=== PATIENT | female | born 1950 | race Caucasian/White ===

== ENCOUNTER 2024-05-08 22:01 | Emergency (ER) | payer MEDICARE, BC, SELFPAY ==
--- OUTSIDE RECORDS SUMMARY | 2024-05-08 22:03 | XMS_ITS | Clinical Summary ---
Author Organization [facility] Address [address] [place] [id number] Care Team Providers Care Geodetic Computator Name Role Phone Lizette Shearer MD Primary Care Provide r Allergies Active Allergy Reactions Criticality Noted Date Comments Tree Nut Throat Swelling/Closing High 11/03/2010 Almonds and hazelnuts, throat swelling Medications vit C,K-Mm-cxnrk-lutei n-zeaxan (PreserVision AREDS-2) capsule Take 1 Capsule by mouth two times daily. 0 01/14/20 22 Active levothyroxine (SYNTHROID) 50 mcg tabletIndications: Hypothyroidism, unspecified type Take 1 Tablet (50 mcg) by mouth before breakfast. Every other day alternating with 75mcg 45 Tablet 3 12/26/19 24 Active levothyroxine (SYNTHROID) 75 mcg tabletIndications: Hypothyroidism, unspecified type Take 1 Tablet (75 mcg) by mouth before breakfast. Every other day alternating with 50mcg. 45 Tablet 3 12/26/19 24 Active EPINEPHrine (EPIPEN) 0.3 mg/0.3 mL auto-injectorIndic ations:[place] allergy Inject 0.3 mg (1 Pen) intramuscular one time if needed for Allergic Reaction. 1 Each 2 12/26/19 24 Active pravastatin (PRAVACHOL) 40 mg tabletIndications: Hyperlipidemia, unspecified hyperlipidemia type Take 1 Tablet (40 mg) by mouth at bedtime. 90 Tablet 3 12/28/19 24 Active cholecalciferol (Vitamin D-3) 2,000 unit capsuleIndications :Osteoporosis, unspecified osteoporosis type, unspecified pathological fracture presence Take 1 Capsule (2,000 units) by mouth once daily. 02/01/20 24 Active ibandronate (BONIVA) 150 mg tabletIndications: Osteoporosis, unspecified osteoporosis type, unspecified pathological fracture presence Take 1 Tablet (150 mg) by mouth once a month. Take on empty stomach with full glass of water, do not lie down for 1 hr. 3 Tablet 3 02/01/20 24 Active ibuprofen (ADVIL; MOTRIN) 200 mg tablet Take 200 mg by mouth 4 times daily if needed. Active Active Problems Problem Noted Date Diagnosed Date Osteoporosis 12/05/2019 Family history of colon cancer 12/17/2015 halfway (current) use of anticoagulants 2012 Other adverse food reactions, not elsewhere clas sified 11/08/2010 Allergic rhinitis, cause unspecified 11/08/2010 [place] allergy 11/03/2010 Overview (11/03/2010): Throat swelling Colon polyp 10/28/2009 Overview (12/02/2020): Unremarkable colonoscopy summer 2006, repeat 5 years Colonoscopy 08/2011 diverticulosis repeat in 5 years Colonoscopy 11/2015 few diverticuli, repeat in 5 years Colonoscopy 11/2020 diverticulosis, repeat in 5 years Hyperlipidemia 10/30/2007 Unspecified hypothyroidism Disorder of bone and cartilage, unspecified Overview (11/03/2010): Osteopenia, dexa 09/2005. Minimal change in 2009 Resolved Problems Problem Noted Date Diagnosed Date Resolved Date Varicose veins of left lower extremity with both ulcer of ankle and inflammation (CODE) 12/22/2022 02/25/2024 Encounters Date Type Department Care Team Description 04/01/2024 11:40 AM BEAN PICKER MACHINE OPERATOR [place] [facility] [address] [place] [address] Mckenna Perdomo MD Derm Problem 04/01/2024 Travel 03/08/2024 9:45 AM BEAN PICKER MACHINE OPERATOR Orders Only [facility] [address] [place] [address] Lab, [place] [facility] 03/08/2024 Travel 02/23/2024 3:40 PM BEAN PICKER MACHINE OPERATOR - 02/23/2024 11:59 PM BEAN PICKER MACHINE OPERATOR Hospital Encounter [facility] [address] [facility] [place] [address] Laurita Rolon DO Localized swelling of left lower leg 02/23/2024 2:40 PM BEAN PICKER MACHINE OPERATOR Office Visit [facility] [address] [facility] [address] Laurita Rolon DO Lump ([place] lump in lower left leg, inside. this am swollen toes and numbness) 02/23/2024 Travel 02/23/2024 Nurse Triage [facility] [address] [place] [address] Lizette Shearer MD Leg Swelling from Last 3 Months Immunizations Name Administration Dates Next Due AMB Influenza, IIV4 PF (=>6 mos Flulaval,Fluzone Fluarix)(Flu Clinic Only) 01/20/2015,01/30/2014 Amb Influenza, Inact (High-d ose) (Flu Clinic Only) 12/28/2015 COVID-19 vaccine (Moderna 10 0mcg/0.5mL) PF, MDV 06/12/2020,05/15/2020 Hepatitis A (Adult) 11/02/2006,04/25/2006 Hepatitis B (Adult) 06/14/2002,01/18/2002,2001 Influenza A (H1N1), Inactivated 03/23/2009 Influenza A (H1N1), Inactiva dave (Age >=3 Years) 03/23/2009 Influenza RIV4 (Age 18+ Years) PRESERV FREE 08/2019,01/10/2019 Influenza, High-dose Inactivated 12/29/2023,12/20 Influenza, High-dose Quadriv alent Inactivated 12/28/2022,01/04/2022,12/29/2020 Influenza, IIV3 (Age >=3 years) 12/14/2012,12/23,12/24/2009 Influenza, Inactivated IIV3 (Age 65+ Years) Preserv Free 01/09/2017 Pneumococcal Poly,23-Valent (Pneumovax) 08/30/19 14 Pneumococcal conj 13-Valent (Prevnar 13) 016 RSV, Recombinant ADJ Reconst ituted (Arexvy 120MCG/0.5mL) 01/11/2024 Td (Age >=7 Years) 09/24/2002 Tdap 07/06/2022,11/03/2010 Zoster (Shingrix-RZV, recombinant) 03/17/2018, Zoster (Zostavax-ZVL, live) 10/28/2009 Family History Medical History Relation Name Comments Heart Disease Brother stent Hyperlipidemia Brother Heart Disease Father age 76, l ikely arrhythmia Hypertension Father Cancer Maternal Grandmother Hodgkin 's disease Cancer-colon Mother Heart Disease Mother age 87 Hyperlipidemia Mother Heart Disease Other Cancer Paternal Grandmother Leukemi a Hyperlipidemia Sister lung cancer Lung cancer Sister Cancer-breast No Family History Cancer-ovarian No Family History Relation Name Status Comments Brother Father (Age 76) ND Maternal Grandmother Mother (Age 87) chf Other Paternal Grandmother Sister Social History Tobacco Use Types Packs/Day Years Used Date Smoking Tobacco: Never Smokeless Tobacco: Never Tobacco Cessation:Counseling Given: No Alcohol Use Standard Drinks/Week Comments Yes 7 (1 standard drink = 0.6 oz pur e alcohol) PHQ-2 Answer Date Recorded PHQ-2 TOTAL SCORE 0 12/26/2023 Social Connections Answer Date Recorded Do you often feel lonely or isolated from those around you? 0 12/26/2023 Financial Resource Strain Answer Date R ecorded Difficulty of Paying Living Expenses 3 12/26/2023 Difficulty of Paying Living Expenses Not on file 12/26/2023 Food Insecurity Answer Date Recorded Do you worry your food will run out before you are able to buy more? 1 12/26/2023 Transportation Needs Answer Date Record ed Does lack of transportation keep you from medica l appointments? 1 12/26/2023 Does lack of transportation keep you from work, meetings or getting things that you need? 1 12/26/2023 Housing Stability Answer Date Recorded What is your housing situation today? 1 12/26/2023 Utilities Answer Date Recorded Do you have trouble paying f or utilities (for example, heat, electricity, water, phone)? 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 Not on file Not on file Obstetrics History Para Term AB IAB SAB Ectopic Multiple Livin g Live Births 2 2 2 Date Outcome GA Total Labor Labor/2nd/3rd Weight Sex Type Anes PTL Kathia A1 A5 Name Clin Para Para Last Filed Vital Signs Vital Sign Reading Time Taken Comments Blood Pressure 142/72 02/23/2024 2:45 PM BEAN PICKER MACHINE OPERATOR Pulse 78 02/23/2024 2:42 PM BEAN PICKER MACHINE OPERATOR Temperature 36.3 C (97.4 F) 07/31/2023 10:32 AM CDT Respiratory Rate 18 02/23/2024 2:42 PM BEAN PICKER MACHINE OPERATOR Oxygen Saturation 98% 02/23/2024 2:42 PM BEAN PICKER MACHINE OPERATOR Inhaled Oxygen Concentration - - Weight 53 kg (116 lb 12.8 oz) 02/23/2024 2:42 PM BEAN PICKER MACHINE OPERATOR Height 165.7 cm (5' 5.25) 12/26/2023 8:43 AM CD T Body Mass Index 19.29 12/26/2023 8:43 AM CDT Plan of Treatment Health Maintenance Due Date Last Done Comments BMI (ht and wt on same day) for age 18+ 12/25/2024 12/26/2023, 04/27/2022, 01/13/2022, Additional history exists Medicare Wellness for age 65+ 12/26/2024, 12/22/2022, 12/17/2021, Additional history exists Depression screening for age 12+ 12/27/2024 12/28/2023, 12/26/2023, 12/22/2022, Additional history exists Colonoscopy through age 75 12/02/202512/02, 12/02/2020, 12/17/2015, Additional history exists Lipids for age 45-75 03/08/2029 03/08/2024, 12/26/2023, 12/22/2022, Additional history exists Tetanus booster 07/06/2032 07/06/2022, 10/18, 09/24/2002 Pneumococcal series for age 50+ Completed 6, 08/29/2013 Zoster (shingles) series for age 50+ Completed 03/17/2018, 12/19/2017, 10/28/2009 Hepatitis C screening for ag e 18-79 Completed 11/30/2018 Tdap Completed 07/06/2022, 11/03/2010 Influenza for age 65+ Completed 12/29/2023 , 12/28/2022, 01/04/2022, Additional history exists RSV vaccine for adults or Completed 01/11/2024 DEXA/DXA scan for age 65+ Completed 2023, 09/26/2014, 10/29/2009 COVID-19 vaccine series Completed 02/12/20, 07/18/2023, 01/25/2023, Additional history exists Procedures Procedure Name Priority Date/Time Associated Diagnosis Comments VITAMIN D 25 (DEFICIENCY) Routine 03/08/2024 9:54 AM BEAN PICKER MACHINE OPERATOR Osteoporosis, unspecified osteoporosis type, unspecified pathological fracture presence LIPID PANEL W REFLEX MEASURED LDL Routine 03/08/2024 9:54 AM BEAN PICKER MACHINE OPERATOR Other hyperlipidemia BASIC METABOLIC PANEL Routine 03/08/2024 9:54 AM BEAN PICKER MACHINE OPERATOR Osteoporosis, unspecified osteoporosis type, unspecified pathological fracture presence ALT (SGPT) Routine 03/08/2024 9:54 AM BEAN PICKER MACHINE OPERATOR Other hyperlipidemia US VENOUS LOWER EXTREMITY LEFT STAT 02/23/2024 4:28 PM BEAN PICKER MACHINE OPERATOR Localized swelling of left lower leg CBC WITH AUTO DIFFERENTIAL STAT 02/23/2024 3:34 PM BEAN PICKER MACHINE OPERATOR Localized swelling of left lower leg BASIC METABOLIC PANEL STAT 02/23/2024 3:34 PM BEAN PICKER MACHINE OPERATOR Localized swelling of left lower leg CBC WITH AUTO DIFFERENTIAL STAT 02/23/2024 3:34 PM BEAN PICKER MACHINE OPERATOR Localized swelling of left lower leg XR DXA BONE DENSITY 2 SITES AXIAL Routine 01/22/2024 9:05 AM BEAN PICKER MACHINE OPERATOR Menopause COLONOSCOPY 12/02/2020 10:06 AM CDT ANTI HCV Routine 11/30/2018 9:51 AM CDT Encounter for hepatitis C screening test for low risk patient from Last 3 Months or Most Recently Relevant to Health Maintenance Results * (ABNORMAL) LIPID PANEL W REFLEX MEASURED LDL (03/08/2024 9:54 AM BEAN PICKER MACHINE OPERATOR) CHOLESTEROL, TOTAL 227(H) <200 mg/dL [facility] HDL CHOLESTEROL 80 > OR = 50 mg/dL [facility] TRIGLYCERIDES 90 <150 mg/dL [facility] LDL-CHOLESTEROL 128(H) mg/dL (calc) [facility] Comment: Reference range: <100 Desirable range <100 mg/dL for primary prevention; <70 mg/dL for patients with CHD or diabetic patients with > or = 2 CHD risk factors. LDL-C is now calculated using the Arian calculation, which is a validated novel method providing better accuracy than the Friedewald equation in the estimation of LDL-C. Jamal SS et al. EDIN. 2013;310(19): 1296-8751 (http://education.Perminova/faq/YUT836) CHOL/HDLC RATIO 2.8 <5.0 (calc) [facility] NON HDL CHOLESTEROL 147(H) <130 mg/dL (calc) [facility] Comment: For patients with diabetes plus 1 major ASCVD risk factor, treating to a non-HDL-C goal of <100 mg/dL (LDL-C of <70 mg/dL) is considered a therapeutic option. Blood BLOOD SPECIMEN / Unknown 03/08/2024 9:54 AM BEAN PICKER MACHINE OPERATOR 03/08/2024 9:54 AM BEAN PICKER MACHINE OPERATOR us Lizette Shearer MD CHEMISTRY Final Result [employer] [facility] [address] [place] [address], [facility] [address] [place] [address] * VITAMIN D 25 (DEFICIENCY) (03/08/2024 9:54 AM BEAN PICKER MACHINE OPERATOR) VITAMIN D,25-OH,TOTAL,IA 61 30 - 100 ng/mL [facility] Comment: Vitamin D Status 25-OH Vitamin D: Deficiency: <20 ng/mL Insufficiency: 20 - 29 ng/mL Optimal: > or = 30 ng/mL For 25-OH Vitamin D testing on patients on D2-supplementation and patients for whom quantitation of D2 and D3 fractions is required, the [facility](TM) 25-OH VIT D, (D2,D3), LC/MS/MS is recommended: order code [id number] (patients >2yrs). See Note 1 Note 1 For additional information, please refer to http://education.Perminova/faq/FKA926 (This link is being provided for informational/ educational purposes only.) Blood BLOOD SPECIMEN / Unknown 03/08/2024 9:54 AM BEAN PICKER MACHINE OPERATOR 03/08/2024 9:54 AM BEAN PICKER MACHINE OPERATOR Lizette Shearer MD SEND OUTS Final Result [employer] [facility] [address] [place] [address], [place] [phone] [facility] [address] [place] [address] * ALT (SGPT) (03/08/2024 9:54 AM BEAN PICKER MACHINE OPERATOR) ALT 11 6 - 29 U/L [facility] Blood BLOOD SPECIMEN / Unknown 03/08/2024 9:54 AM BEAN PICKER MACHINE OPERATOR 03/08/2024 9:54 AM BEAN PICKER MACHINE OPERATOR Lizette Shearer MD CHEMISTRY Final Result [employer] [facility] [address] [facility] [place] [address], [place] [phone] [facility] [address] [place] [address] * (ABNORMAL) BASIC METABOLIC PANEL (03/08/2024 9:54 AM BEAN PICKER MACHINE OPERATOR) Only the most recent of2 resultswithin the time period is included. GLUCOSE 93 65 - 99 mg/dL [facility] Comment: Fasting reference interval UREA NITROGEN (BUN) 17 7 - 25 mg/dL [facility] CREATININE 1.00 0.60 - 1.00 mg/dL [facility] EGFR 59(L) > OR = 60 mL/min/1. 73m2 [employer] [facility] BUN/CREATININE RATIO SEE NOTE: 6 - 22 (calc) [facility] Comment: Not Reported: BUN and Creatinine are within reference range. SODIUM 138 135 - 146 mmol/L [facility] POTASSIUM 4.6 3.5 - 5.3 mmol/L [facility] CHLORIDE 103 98 - 110 mmol/L [employer] [facility] CARBON DIOXIDE 27 20 - 32 mmol/L [facility] ELECTROLYTE BALANCE 8 7 - 17 mmol/L (calc) [facility] CALCIUM 9.2 8.6 - 10.4 mg/dL [facility] Blood BLOOD SPECIMEN / Unknown 03/08/2024 9:54 AM BEAN PICKER MACHINE OPERATOR 03/08/2024 9:54 AM BEAN PICKER MACHINE OPERATOR us Lizette Shearer MD CHEMISTRY Final Result [employer] [facility] [address] [place] [address], [facility] [address] [place] [address] * US VENOUS LOWER EXTREMITY LEFT (02/23/2024 4:28 PM BEAN PICKER MACHINE OPERATOR) Anatomical Region Laterality Modality LEGS, LEG L, Abdomen Ultrasound 02/23/2024 4:53 PM BEAN PICKER MACHINE OPERATOR Impressions 02/23/2024 4:53 PM BEAN PICKER MACHINE OPERATOR No evidence of left lower extremity deep venous thrombosis. Dictated by Sarmad Leo MD @ 02/23/2024 4:53:30 PM Dictated by: Sarmad Leo MD @ 02/23/2024 16:53:42 (Electronically Signed) Narrative 02/23/2024 4:53 PM BEAN PICKER MACHINE OPERATOR For Patients: As a result of the Cures Act, medical imaging exams and procedure reports are released immediately into your electronic medical record. You may view this report before your referring provider. If you have questions, please contact your health care provider. INDICATION: Localized swelling left lower leg. TECHNIQUE: Ultrasound venous duplex lower left extremity. Compression venous exam was performed using snyder-scale, color Doppler, and spectral Doppler analysis. COMPARISON: 12/07/2023. FINDINGS: Sonographic imaging demonstrates the left common femoral, deep femoral, superficial femoral, popliteal, posterior tibial, peroneal and contralateral right common femoral veins to be fully compressible with normal color Doppler blood flow. Left greater saphenous vein as imaged is patent in this patient with prior ablation. Soft tissues elsewhere as imaged are unremarkable. Procedure Note Sarmad Leo DO - 02/23/2024 For Patients: As a result of the Cures Act, medical imagingexams and procedure reports are released immediately into your electronicmedical record. You may view this report before your referring provider.If you have questions, please contact your health care provider. INDICATION: Localized swelling left lower leg. TECHNIQUE: Ultrasound venous duplex lower left extremity. Compression venous exam wasperformed using snyder-scale, color Doppler, and spectral Doppler analysis. COMPARISON: 12/07/2023. FINDINGS: Sonographic imaging demonstrates the left common femoral, deep femoral,superficial femoral, popliteal, posterior tibial, peroneal andcontralateral right common femoral veins to be fully compressible withnormal color Doppler blood flow. Left greater saphenous vein as imaged ispatent in this patient with prior ablation. Soft tissues elsewhere asimaged are unremarkable. IMPRESSION: No evidence of left lower extremity deep venous thrombosis. Dictated by Sarmad Leo MD @ 02/23/2024 4:53:30 PM Dictated by: Sarmad Leo MD @ 02/23/2024 16:53:42 (Electronically Signed) us Laurita Rolon DO US Final Result * (ABNORMAL) CBC WITH AUTO DIFFERENTIAL (02/23/2024 3:34 PM [facility]) WHITE BLOOD COUNT 8.4 4.5 - 11.0 thou/cu mm 02/23/2024 3:44 PM [facility] RED BLOOD COUNT 4.95 4.00 - 5.20 mil/cu mm 02/23/2024 3:44 PM [facility] HEMOGLOBIN 13.8 12.0 - 16.0 g/dL 02/23/2024 3:44 PM [facility] HEMATOCRIT 43.3 33.0 - 51.0 % 02/23/2024 3:44 PM [facility] MCV 88 80 - 100 fL 02/23/2024 3:44 PM [facility] MCH 27.9 26.0 - 34.0 pg 02/23/2024 3:44 PM [facility] MCHC 31.9(L) 32.0 - 36.0 g/dL 02/23/2024 3:44 PM [facility] RDW 14.0 11.5 - 15.5 % 02/23/2024 3:44 PM [facility] PLATELET COUNT 225 140 - 440 thou/cu mm 02/23/2024 3:44 PM [facility] MPV 9.7 6.5 - 11.0 fL 02/23/2024 3:44 PM [facility] % NEUT 67.6 % 02/23/2024 3:44 PM [facility] % LYMPH 20.7 % 02/23/2024 3:44 PM [facility] % MONO 9.0 % 02/23/2024 3:44 PM [facility] % EOS 1.9 % 02/23/2024 3:44 PM [facility] % BASO 0.8 % 02/23/2024 3:44 PM [facility] ABSOLUTE NEUTROPHILS 5.7 1.7 - 7.0 thou/cu mm 02/23/2024 3:44 PM BEAN PICKER MACHINE OPERATOR [facility] ABSOLUTE LYMPHOCYTES 1.7 0.9 - 2.9 thou/cu mm 02/23/2024 3:44 PM BEAN PICKER MACHINE OPERATOR [facility] ABSOLUTE MONOCYTES 0.8 <0.9 thou/cu mm 02/23/2024 3:44 PM BEAN PICKER MACHINE OPERATOR [facility] ABSOLUTE EOSINOPHILS 0.2 <0.5 thou/cu mm 02/23/2024 3:44 PM BEAN PICKER MACHINE OPERATOR [facility] ABSOLUTE BASOPHILS 0.1 <0.3 thou/cu mm 02/23/2024 3:44 PM BEAN PICKER MACHINE OPERATOR [facility] Blood BLOOD SPECIMEN / Unknown [facility] / Unknown 02/23/2024 3:34 PM BEAN PICKER MACHINE OPERATOR 02/23/2024 3:34 PM BEAN PICKER MACHINE OPERATOR us Laurita Rolon DO HEMATOLOGY Final Result [facility] [address] [place] [address] * (ABNORMAL) XR DXA BONE DENSITY 2 SITES AXIAL (01/22/2024 9:05 AM BEAN PICKER MACHINE OPERATOR) Anatomical Region Laterality Modality Spine, HIPS, HIPL, HIPR Other Impressions 01/23/2024 2:07 PM BEAN PICKER MACHINE OPERATOR Osteoporosis. RECOMMENDATIONS: The National Osteoporosis Foundation recommends pharmacologic treatment for patients with T-scores of -2.5 or less, patients with prior history of fragility fractures, or patients with 10-year probability of greater than 3% at hips or greater than 20% of suffering major osteoporotic fractures. Recommend continued optimization of calcium and vitamin D intake through dietary means and/or supplementation and regular exercise. Consider pharmacologic therapy for osteoporosis. Follow-up bone density reading in 2 years if therapy initiated to assess therapeutic efficacy. Albertina Omer PA-C [facility] 01/23/2024 Narrative 01/23/2024 2:07 PM BEAN PICKER MACHINE OPERATOR For Patients: Results are automatically released to your [employer] ([employer]) account once available, in compliance with federal regulations. This means that you may see your results before your provider has had a chance to review them. Please allow 2-3 business days for your provider to comment on the results. XR DXA Bone Mineral Density (BMD) EXAM LOCATION: [email or web address] [address] [facility] [address] PATIENT NAME: Jelena Galvez DATE OF : 1950 EXAM DATE: 01/22/2024 REQUESTING PROVIDER: Lizette Shearer MD GENDER AT : female HEIGHT: 5' 5.25 (12/26/2023) WEIGHT: 118 lb (12/26/2023) MENOPAUSAL STATUS: Postmenopausal RACE/ETHNICITY: White RISK FACTORS: Family History of Osteoporosis, History of Fragility Fracture (at a major site), Weight < 127 lbs., and White Race CURRENT MEDICATION FOR BONE LOSS: NONE INDICATION: Menopause COMPARISON DATE(S): 2014 DXA scans are compared to prior studies for a patient only when the two (or more) studies were performed on the same scanner. It is not possible to compare data generated on one scanner to data from another because there are not standards in DXA equipment. This applies even if the two scanners are made by the same microfabrication engineer manager. PROCEDURE: Dual-energy x-ray absorptiometry performed with routine technique. Reporting is completed in the form of a T-score. The T-score represents the standard deviation from peak bone mass based on young healthy adult. A Z-score is used for diagnosis in premenopausal women, and for men under the age of 50. FINDINGS: RESULT LUMBAR SPINE L1 - L2 (EXCLUDE L3, L4) BMD: 0.868 g/cm2 T-Score: - 2.5 Z-Score: - 0.4 Change from prior in 2014: Decrease 4.4%. RESULTS FEMUR Left femoral neck BMD: 0.670 g/cm2 T-Score: - 2.6 Z-Score: - 0.5 Change from prior in 2015: Decrease 2.0%. Right femoral neck BMD: 0.655 g/cm2 T-Score: - 2.8 Z-Score: - 0.6 Change from prior in 2014: Decrease 2.2%. Left hip BMD: 0.740 g/cm2 T-Score: - 2.1 Z-Score: - 0.1 Change from prior in 2014: Decrease 0.7%. Right hip BMD: 0.681 g/cm2 T-Score: - 2.6 Z-Score: - 0.6 Change from prior in 2015: Decrease 0.6%. WHO criteria: Normal: T-score at or above -1 SD Osteopenia: T-score between -1.1 and -2.4 SD Osteoporosis: T-score at or below -2.5 SD us Lizette Shearer MD DEXA Final Result * COLONOSCOPY (12/02/2020 10:06 AM CDT) 12/02/2020 10:0 6 AM CDT Narrative Transcriptions Jamal Finley MD - 12/02/2020 10:42 AM CDT Patient Name: Jelena Galvez Procedure Date: 12/02/2020 Gender: Female Date of : 1950 Admit Type: Outpatient Procedure: Colonoscopy Proceduralist: Jamal Finley MD , Mouna Decker (Nurse) Indications/Pre-Op Diagnosis: Screening in patient at increased risk:Family history of 1st-degree relative withcolorectal cancer before age 60 years, Surveillance: Personal history of adenomatous polyps onlast colonoscopy 5 years ago, Last colonoscopy: November 2015 Medications: Fentanyl 100 micrograms IV, Midazolam 4 mgIV, The level of sedation administered wasmoderate Procedure Description: The patient had risks, benefits and alternatives explained to andgave informed consent. The patient had a stable cardiopulmonary status and judged an adequate candidate for conscious sedation. The colonoscope was passed through the anus and advanced to thececum, identified by appendiceal orifice and ileocecal valve. Thecolonoscopy was performed without difficulty. The patient tolerated the procedure well. The quality of the bowel preparation was good. The ileocecal valve, appendiceal orifice, and rectum were photographed. Complications: No immediate complications. Estimated Blood Loss & Specimen: Estimated blood loss: none. Specimen collected - None Findings: The perianal and digital rectal examinations were normal. Many small-mouthed diverticula were found in the sigmoid colon. The colon (entire examined portion) was mildly redundant. The exam was otherwise without abnormality on direct and retroflexion views. Impressions/Post-Op Diagnosis: - Diverticulosis in the sigmoid colon. - Redundant colon. - The examination was otherwise normal on direct and retroflexionviews. - No specimens collected. Recommendation: - Patient has a contact number available for emergencies. The signsand symptoms of potential delayed complications were discussed with the patient. Return to normal activities tomorrow. Written discharge instructions were provided to the patient. - Resume previous diet. - Continue present medications. - Repeat colonoscopy in 5 years for surveillance. Moderate Sedation: Moderate (conscious) sedation was administered by the endoscopy nurse and supervised by the endoscopist. The following parameters were monitored: oxygen saturation, heart rate, respiratory rate, blood pressure, adequacy of pulmonary ventilation and reponse to care. Please refer to the patient's medical record flowsheets and nursing notes for moderate sedation details. Total physician intraservice time was 17 minutes. Jamal Finley MD 12/02/2020 10:42:12 AM This report has been signed electronically. Note Initiated On: 12/02/2020 10:06 AM Procedure Code(s): --- Professional --- 47311, Colonoscopy, flexible; diagnostic, including collection of specimen(s) bybrushing or washing, when performed (separateprocedure) Diagnosis Code(s): --- Professional --- Z80.0, Family history of malignant neoplasmof digestive organs Z86.010, Personal history of colonicpolyps K57.30, Diverticulosis of large intestine without perforation or abscess withoutbleeding Q43.8, Other specified congenitalmalformations of intestine CPT copyright 2020 [employer]. All rights reserved. The codes documented in this report are preliminary and upon millinery copyist reviewmay be revised to meet current compliance requirements. Scope In: 10:21:30 AM Scope Withdrawal Time 0 hours 7 minutes 7 seconds Scope Out: 10:36:13 AM us Jamal Finley MD PROCEDURE ORD Final Res ult * ANTI HCV (11/30/2018 9:51 AM CDT) HEPATITIS C ANTIBODY Non-React kirit Non-React kirit 11/30/2018 6:16 PM CDT [facility] Comment:Antibodies to HCV no t detected; does not exclude the possibility of exposure to HCV. Blood BLOOD SPECIMEN / Unknown Venipuncture / Unknown 11/30/2018 9:51 AM CDT 11/30/2018 9:51 AM CDT us Lizette Shearer MD SEND OUTS Final Result [facility] [address] [place] [address], [place] from Last 3 Months or Most Recently Relevant to Health Maintenance Insurance [place] BLUE MR PB ONLY BL[place] BLUE HB ONLY MEDICARE PART B HB ONLY MEDICARE PART A HB ONLY [place] BLUE HB ONLY MEDICARE PART B HB ONLY Care Teams Geodetic Computator Relationship Specialty Start Date End Date Lizette Shearer MD [address] [place] [address] PCP - General Family Practice 12/14/12
[2024-05-08 22:06] VITALS: BP 137/78; PULSE 87; RESP 16; TEMP 36.6; O2SAT 98
--- NOTE | 2024-05-08 22:21 | ED.GENADULT ---
HPI - General Adult General Chief complaint: Neck Injury/Pain Stated complaint: Joint pain--hands, knees, neck Time Seen by Provider: 05/08/24 22:07 History of Present Illness HPI narrative: joint pain in knees, hands, neck starting tonight. fingers feel weak. symptoms started this afternoon, denies injury or falls. able to move all extremities equally but more painful with movement. tried ibuprofen w/o relief. did a home covid test and it was negative 73-year-old woman presenting to the emergency department with concern of markedly increased joint pain specifically non muscles, in both knees her right hand more than her left and then her neck. Began this afternoon. Has not noticed any rash. As noted without rash but did have a bruise on her left upper outer leg as gestured recently. It is winter so doubtful tick exposure. No travel but planning to travel at the end of May. No new trauma otherwise. No diagnosed inflammatory disorders. Does have a history of hypothyroid. Takes a statin. Generally very limited medication ingestion. She did take 400 mg of ibuprofen earlier without relief. Was not sick recently that she can identify. Generally quite healthy actually though she noted last lab work seem to have an elevated creatinine. Related Data Home Medications ?Medication ?Instructions ?Recorded ?Confirmed epinephrine 0.3 mg/0.3 mL IM 05/08/24 injection, auto-injector ibandronate 150 mg tablet mg PO 05/08/24 levothyroxine 50 mcg tablet 50 mcg PO Q1D 05/08/24 05/08/24 levothyroxine 75 mcg tablet 75 mcg PO Q1D 05/08/24 05/08/24 pravastatin 20 mg tablet mg DAILY 05/08/24 Previous Rx's ?Medication ?Instructions ?Recorded indomethacin 25 mg capsule 25 mg PO TID #15 caps 05/09/24 Allergies Allergy/AdvReac Type Severity Reaction Status Date / Time almond Allergy Severe Verified 05/08/24 22:12 hazelnut Allergy Severe Verified 05/08/24 22:12 Review of Systems Status of ROS: Reports: 6 or more systems reviewed and unremarkable except as noted in History and below [facility] Social History Non-prescribed substance use: denies use Exam Narrative: Exam Narrative: Very pleasant. NAD. Breathing easily. Neck is supple without lymphadenopathy. Subjectively sore with rotation. I do not appreciate any areas of swelling. Skin is warm and dry without evidence of rash. Did not examine the skin lower extremities. Right wrist little puffy. Favoring it. Some subtle bruising perhaps in the thenar eminence. Bilateral knees seem to be little full as well. Const: Vital Signs, click to edit/add: Vital Signs - 24 hr 05/08/24 22:06 Temperature 98 F Pulse Rate [Pulse Oximeter] 87 Respiratory Rate 16 Blood Pressure [Ri ght Upper Arm] 137/78 Pulse Oximetry 98 Oxygen Delivery Me thod Room Air Documenting provider has reviewed patient's vital signs: yes Course Vital Signs Vital signs: Initial Vital Signs Temperature 98 F 05/08/24 22:06 Temperature Source Temporal Artery Scan 05/08/24 22:06 Pulse Rate 87 05/08/24 22:06 Respiratory Rate 16 05/08/24 22:06 Blood Pressure 137/78 05/08/24 22:06 Blood Pressure Mean 97 05/08/24 22:06 Blood Pressure Position Sitting 05/08/24 22:06 Pulse Oximetry 98 05/08/24 22:06 Oxygen Delivery Method Room Air 05/08/24 22:06 Vital Signs Temperature 98 F 05/08/24 22:06 Pulse Rate 87 05/08/24 22:06 Respiratory Rate 16 05/08/24 22:06 Blood Pressure 137/78 05/08/24 22:06 Pulse Oximetry 98 05/08/24 22:06 Oxygen Delivery Method Room Air 05/08/24 22:06 Temperature 98 F 05/08/24 22:06 Pulse Rate 87 05/08/24 22:06 Respiratory Rate 16 05/08/24 22:06 Blood Pressure 137/78 05/08/24 22:06 Pulse Oximetry 98 05/08/24 22:06 Oxygen Delivery Method Room Air 05/08/24 22:06 Medical Decision Making MDM Narrative Medical decision making narrative: No prior history of recurrent arthritic condition. Not clearly with preceding illness but I would suspect a polyarthralgia likely viral mediated. Considering winter doubtful tick exposure or other insect bite. Not encephalopathic. Would check labs for marked deviation, red flags to warrant further workup or concern. Can at least serve as a baseline pending improvement. Otherwise I would consider treating with NSAIDs in the short term. Offered pain medication but as long she is not moving is not particularly sore. Collected standard labs including inflammatory markers. These are unremarkable other than white count is mildly elevated. Some neutrophilic elevation. Good renal function. No further developments during time in the ER. See patient discharge plan for further discussion Can use that wrist splint as needed for comfort. Stay Well hydrated. Take 400-600 mg of ibuprofen 3 times daily, maybe with a little food, I think over the next 5 days. If not in approving over 24 hours, consider filling the indomethacin prescription. Would take that then 4-5 days. If you would prefer to try a different nsqm-jwm-euuiibk NSAID, would consider taking 375 mg of naproxen 2 times daily over the same time period. Follow-up if simply not improved in 7-10 days or have marked increase in swelling, redness, pain or develop presumably associated fever. Lab Data Lab results reviewed: Yes I reviewed the patient's lab results Labs: Lab Results 05/08/24 05/08/24 Range/Units 22:09 22:45 WBC 12.88 H (4.50-11.00) K/uL RBC 4.96 (4.00-5.20) m/uL Hgb 13.6 (12.0-16.0) gm/dL Hct 43.2 (33.0-51.0) % MCV 87 (80-100) fL MCH 27 (26-34) pg MCHC 32 (32-36) gm/dL RDW Coeff of Nat 13.3 (11.5-15.5) % Plt Count 192 (140-440) K/uL Neut % (Auto) 83.4 H (42.0-72.0) % Lymph % (Auto) 8.6 L (20-44) % [place] % (Auto) 6.2 (0.0-11.0) % Eos % (Auto) 0.4 (0.0-7.0) % Baso % (Auto) 0.6 (0.0-3.0) % Neut # (Auto) 10.70 H (1.7-7.0) K/uL Lymph # (Auto) 1.10 (0.90-2.90) K/uL [place] # (Auto) 0.80 (0.00-0.90) K/UL Eos # (Auto) 0.10 (0.00-0.50) K/uL Baso # (Auto) 0.10 (0.00-0.30) K/uL Abs Immat Gran (auto) 0.10 (0.00-0.30) K/uL Imm/Tot Granulo (auto) 0.8 % ESR 6 (2-20) mm/hr Sodium 134 L (135-149) mmol/L Potassium 4.2 (3.6-5.1) mmol/L Chloride 101 (96-114) mmol/L Carbon Dioxide 24 (20-32) mmol/L Anion Gap 9 (7-15) mEq/L BUN 21 (7-30) mg/dL Creatinine 1.0 (0.5-1.5) mg/dL Estimated GFR 59 ml/min Glucose 162 H (60-115) mg/dL Calcium 9.2 (8.4-10.6) mg/dL C-Reactive Protein < 0.5 L (0.5-1.0) mg/dL SARS-CoV-2 (PCR) Negative SARS-CoV-2 (Negative) Influenza Type A (PCR) Negative PCR FLU A (Negative) Influenza Type B (PCR) Negative PCR FLU B (Negative) RSV (PCR) Negative PCR RSV (Negative) Discharge Plan Discharge Clinical Impression: Polyarthralgia Patient Disposition: Home, Self-Care Condition: Stable Additional Instructions: Can use that wrist splint as needed for comfort. Stay Well hydrated. Take 400-600 mg of ibuprofen 3 times daily, maybe with a little food, I think over the next 5 days. If not in approving over 24 hours, consider filling the indomethacin prescription. Would take that then 4-5 days. If you would prefer to try a different qsfi-lao-ewrnhgl NSAID, would consider taking 375 mg of naproxen 2 times daily over the same time period. Follow-up if simply not improved in 7-10 days or have marked increase in swelling, redness, pain or develop presumably associated fever. Prescriptions: New indomethacin 25 mg capsule 25 mg PO TID Qty: 15 0RF Rx Instructions: administer with food or milk No Action levothyroxine 75 mcg tablet 75 mcg PO Q1D levothyroxine 50 mcg tablet 50 mcg PO Q1D pravastatin 20 mg tablet DAILY epinephrine 0.3 mg/0.3 mL auto-injector IM ibandronate 150 mg tablet PO Follow Up/Referrals: Lizette Shearer MD [Primary Care Provider] - Stand Alone Forms: Proxible Info Instructions
--- OUTSIDE RECORDS SUMMARY | 2024-05-08 22:48 | XMS_ITS | Clinical Summary ---
Author Organization [facility] Address [address] [place] [id number] Care Team Providers Care Pest Controller Name Role Phone Lizette Shearer MD Primary Care Provide r Allergies Active Allergy Reactions Criticality Noted Date Comments Tree Nut Throat Swelling/Closing High 11/03/2010 Almonds and hazelnuts, throat swelling Medications vit C,F-Hj-khepk-lutei n-zeaxan (PreserVision AREDS-2) capsule Take 1 Capsule [...] Active EPINEPHrine (EPIPEN) 0.3 mg/0.3 mL auto-injectorIndic ations:Chester allergy Inject 0.3 mg (1 Pen) intramuscular [...] 12/05/2019 Family history of colon cancer 12/17/2015 nursing home (current) use of anticoagulants 2012 Other adverse food reactions, not elsewhere clas sified 11/08/2010 Allergic rhinitis, cause unspecified 11/08/2010 Chester allergy 11/03/2010 Overview (11/03/2010): Throat swelling Colon [...] Department Care Team Description 04/01/2024 11:40 AM BASE LOADER Office Visit [facility] [address] [place] [address] Mckenna Perdomo MD Derm Problem 04/01/2024 Travel 03/08/2024 9:45 AM BASE LOADER Orders Only [facility] [address] [place] [address] Lab, [place] Lab 03/08/2024 Travel 02/23/2024 3:40 PM BASE LOADER - 02/23/2024 11:59 PM BASE LOADER Hospital Encounter [facility] [address] [facility] [place] [address] Laurita Rolon DO Localized swelling of left lower leg 02/23/2024 2:40 PM BASE LOADER Office Visit [facility] [address] [place] [address] Laurita Rolon DO Lump (Kemp lump in lower left leg, inside. this am swollen toes and numbness) 02/23/2024 Travel 02/23/2024 Nurse Triage [facility] [address] [facility] [place] [address] Lizette Shearer MD Leg Swelling from Last [...] Name Status Comments Brother Father (Age 76) [place] Maternal Grandmother Mother (Age 87) chf Other [...] on file Legal Sex Female 5:23 AM BASE LOADER Gender Identity Not on file Sexual Orientation [...] Comments Blood Pressure 142/72 02/23/2024 2:45 PM BASE LOADER Pulse 78 02/23/2024 2:42 PM BASE LOADER Temperature 36.3 C (97.4 F) 07/31/2023 10:32 AM CDT Respiratory Rate 18 02/23/2024 2:42 PM BASE LOADER Oxygen Saturation 98% 02/23/2024 2:42 PM BASE LOADER Inhaled Oxygen Concentration - - Weight 53 kg (116 lb 12.8 oz) 02/23/2024 2:42 PM BASE LOADER Height 165.7 cm (5' 5.25) 12/26/2023 8:43 [...] D 25 (DEFICIENCY) Routine 03/08/2024 9:54 AM BASE LOADER Osteoporosis, unspecified osteoporosis type, unspecified pathological fracture presence LIPID PANEL W REFLEX MEASURED LDL Routine 03/08/2024 9:54 AM BASE LOADER Other hyperlipidemia BASIC METABOLIC PANEL Routine 03/08/2024 9:54 AM BASE LOADER Osteoporosis, unspecified osteoporosis type, unspecified pathological fracture presence ALT (SGPT) Routine 03/08/2024 9:54 AM BASE LOADER Other hyperlipidemia US VENOUS LOWER EXTREMITY LEFT STAT 02/23/2024 4:28 PM BASE LOADER Localized swelling of left lower leg CBC WITH AUTO DIFFERENTIAL STAT 02/23/2024 3:34 PM BASE LOADER Localized swelling of left lower leg BASIC METABOLIC PANEL STAT 02/23/2024 3:34 PM BASE LOADER Localized swelling of left lower leg CBC WITH AUTO DIFFERENTIAL STAT 02/23/2024 3:34 PM BASE LOADER Localized swelling of left lower leg XR DXA BONE DENSITY 2 SITES AXIAL Routine 01/22/2024 9:05 AM BASE LOADER Menopause COLONOSCOPY 12/02/2020 10:06 AM CDT ANTI HCV Routine 11/30/2018 9:51 AM CDT Encounter for hepatitis C screening test for low risk patient from Last 3 Months or Most Recently Relevant to Health Maintenance Results * (ABNORMAL) LIPID PANEL W REFLEX MEASURED LDL (03/08/2024 9:54 AM BASE LOADER) CHOLESTEROL, TOTAL 227(H) <200 mg/dL [facility] [...] LDL-C. Jamal SS et al. EDIN. 2013;310(19): 0034-9505 (http://education.Interview Rocket/faq/RUK669) CHOL/HDLC RATIO 2.8 <5.0 (calc) [facility] NON HDL CHOLESTEROL 147(H) <130 mg/dL (calc) [facility] Comment: For patients with diabetes plus 1 major ASCVD risk factor, treating to a non-HDL-C goal of <100 mg/dL (LDL-C of <70 mg/dL) is considered a therapeutic option. Blood BLOOD SPECIMEN / Unknown 03/08/2024 9:54 AM BASE LOADER 03/08/2024 9:54 AM BASE LOADER us Lizette Shearer MD CHEMISTRY Final Result [facility] [address] [place] [address], [facility] [address] [place] [address] * VITAMIN D 25 (DEFICIENCY) (03/08/2024 9:54 AM BASE LOADER) VITAMIN D,25-OH,TOTAL,IA 61 30 - 100 ng/mL [facility]ie acosta [facility]eno Comment: Vitamin D Status 25-OH Vitamin D: Deficiency: <20 ng/mL Insufficiency: 20 - 29 ng/mL Optimal: > or = 30 ng/mL For 25-OH Vitamin D testing on patients on D2-supplementation and patients for whom quantitation of D2 and D3 fractions is required, the QuestAssureD(TM) 25-OH VIT D, (D2,D3), LC/MS/MS is recommended: order code 85599 (patients >2yrs). See Note 1 Note 1 For additional information, please refer to http://education.Interview Rocket/faq/EVO684 (This link is being provided for informational/ educational purposes only.) Blood BLOOD SPECIMEN / Unknown 03/08/2024 9:54 AM BASE LOADER 03/08/2024 9:54 AM BASE LOADER Lizette Shearer MD SEND OUTS Final Result [facility] [facility] [address] [place] [address], [place] [phone] [facility] [address] [place] [address] * ALT (SGPT) (03/08/2024 9:54 AM BASE LOADER) ALT 11 6 - 29 U/L [facility] Blood BLOOD SPECIMEN / Unknown 03/08/2024 9:54 AM BASE LOADER 03/08/2024 9:54 AM BASE LOADER Lizette Shearer MD CHEMISTRY Final Result [facility] [address] [place] [address], [place] [phone] [facility] [address] [place] [address] * (ABNORMAL) BASIC METABOLIC PANEL (03/08/2024 9:54 AM BASE LOADER) Only the most recent of2 resultswithin the time period is included. GLUCOSE 93 65 - 99 mg/dL [facility] karla Burr Comment: Fasting reference interval UREA NITROGEN (BUN) 17 7 - 25 mg/dL [facility] oradha [facility] CREATININE 1.00 0.60 - 1.00 mg/dL [facility] orad[facility] EGFR 59(L) > OR = 60 mL/min/1. 73m2 [facility] oradha [facility] BUN/CREATININE RATIO SEE NOTE: 6 - 22 (calc) [facility] Comment: Not Reported: BUN and Creatinine are within reference range. SODIUM 138 135 - 146 mmol/L [facility] oradha [facility] POTASSIUM 4.6 3.5 - 5.3 mmol/L [facility] oradha Leno CHLORIDE 103 98 - 110 mmol/L [facility] CARBON DIOXIDE 27 20 - 32 mmol/L [facility] oradha [facility] ELECTROLYTE BALANCE 8 7 - 17 mmol/L (calc) [facility] CALCIUM 9.2 8.6 - 10.4 mg/dL [facility] oradha [facility] Blood BLOOD SPECIMEN / Unknown 03/08/2024 9:54 AM BASE LOADER 03/08/2024 9:54 AM BASE LOADER us Lizette Shearer MD CHEMISTRY Final Result [facility] [address] [place] [address], [facility] [address] [place] [address] * US VENOUS LOWER EXTREMITY LEFT (02/23/2024 4:28 PM BASE LOADER) Anatomical Region Laterality Modality LEGS, LEG L, Abdomen Ultrasound 02/23/2024 4:53 PM BASE LOADER Impressions 02/23/2024 4:53 PM BASE LOADER No evidence of left lower extremity deep venous thrombosis. Dictated by Sarmad Leo MD @ 02/23/2024 4:53:30 PM Dictated by: Sarmad Leo MD @ 02/23/2024 16:53:42 (Electronically Signed) Narrative 02/23/2024 4:53 PM BASE LOADER For Patients: As a result of the [...] CBC WITH AUTO DIFFERENTIAL (02/23/2024 3:34 PM [facility]) WHITE BLOOD COUNT 8.4 4.5 - 11.0 thou/cu mm 02/23/2024 3:44 PM [facility] RED BLOOD COUNT 4.95 4.00 - 5.20 mil/cu mm 02/23/2024 3:44 PM [facility] HEMOGLOBIN 13.8 12.0 - 16.0 g/dL 02/23/2024 3:44 PM [facility] HEMATOCRIT 43.3 33.0 - 51.0 % 02/23/2024 3:44 PM [facility] MCV 88 80 - 100 fL 02/23/2024 3:44 PM [facility] MCH 27.9 26.0 - 34.0 pg 02/23/2024 3:44 PM [facility] MCHC 31.9(L) 32.0 - 36.0 g/dL 02/23/2024 3:44 PM [facility] RDW 14.0 11.5 - 15.5 % 02/23/2024 3:44 PM [facility] PLATELET COUNT 225 140 - 440 thou/cu mm 02/23/2024 3:44 PM [facility] MPV 9.7 6.5 - 11.0 fL 02/23/2024 3:44 PM [facility] % NEUT 67.6 % 02/23/2024 3:44 PM [facility] % LYMPH 20.7 % 02/23/2024 3:44 PM [facility] % MONO 9.0 % 02/23/2024 3:44 PM [facility] % EOS 1.9 % 02/23/2024 3:44 PM [facility] % BASO 0.8 % 02/23/2024 3:44 PM [facility] ABSOLUTE NEUTROPHILS 5.7 1.7 - 7.0 thou/cu mm 02/23/2024 3:44 PM BASE LOADER [facility] ABSOLUTE LYMPHOCYTES 1.7 0.9 - 2.9 thou/cu mm 02/23/2024 3:44 PM BASE LOADER [facility] ABSOLUTE MONOCYTES 0.8 <0.9 thou/cu mm 02/23/2024 3:44 PM BASE LOADER [facility] ABSOLUTE EOSINOPHILS 0.2 <0.5 thou/cu mm 02/23/2024 3:44 PM BASE LOADER [facility] ABSOLUTE BASOPHILS 0.1 <0.3 thou/cu mm 02/23/2024 3:44 PM BASE LOADER [facility] Blood BLOOD SPECIMEN / Unknown [facility] / Unknown 02/23/2024 3:34 PM BASE LOADER 02/23/2024 3:34 PM BASE LOADER us Laurita Rolon DO HEMATOLOGY Final Result [facility] [address] [place] [address] * (ABNORMAL) XR DXA BONE DENSITY 2 SITES AXIAL (01/22/2024 9:05 AM BASE LOADER) Anatomical Region Laterality Modality Spine, HIPS, HIPL, HIPR Other Impressions 01/23/2024 2:07 PM BASE LOADER Osteoporosis. RECOMMENDATIONS: The National Osteoporosis Foundation recommends [...] to assess therapeutic efficacy. Albertina Omer PA-C [facility] 01/23/2024 Narrative 01/23/2024 2:07 PM BASE LOADER For Patients: Results are automatically released to your [employer] (1EQ) account once available, in compliance with federal regulations. This means that you may see your results before your provider has had a chance to review them. Please allow 2-3 business days for your provider to comment on the results. XR DXA Bone Mineral Density (BMD) EXAM LOCATION: [facility] [address] [facility] [address] PATIENT NAME: Jelena Galvez DATE OF : [...] two scanners are made by the same power station operator. PROCEDURE: Dual-energy x-ray absorptiometry performed with routine [...] 10:06 AM Procedure Code(s): --- Professional --- 68755, Colonoscopy, flexible; diagnostic, including collection of specimen(s) bybrushing or washing, when performed (separateprocedure) Diagnosis Code(s): --- Professional --- Z80.0, Family history of malignant neoplasmof digestive organs Z86.010, Personal history of colonicpolyps K57.30, Diverticulosis of large intestine without perforation or abscess withoutbleeding Q43.8, Other specified congenitalmalformations of intestine CPT copyright 2020 [employer]. All rights reserved. The codes documented in this report are preliminary and upon inpatient coder reviewmay be revised to meet current compliance requirements. Scope In: 10:21:30 AM Scope Withdrawal Time 0 hours 7 minutes 7 seconds Scope Out: 10:36:13 AM us Jamal Finley MD PROCEDURE ORD Final Res ult * ANTI HCV (11/30/2018 9:51 AM CDT) HEPATITIS C ANTIBODY Non-React kirit Non-React kirit 11/30/2018 6:16 PM CDT [facility] Comment:Antibodies to HCV no t detected; does not exclude the possibility of exposure to HCV. Blood BLOOD SPECIMEN / Unknown Venipuncture / Unknown 11/30/2018 9:51 AM CDT 11/30/2018 9:51 AM CDT us Lizette Shearer MD SEND OUTS Final Result [facility] [address] [place] [address], [place] from Last 3 Months or Most Recently Relevant to Health Maintenance Insurance [employer]UE [employer]OSS [place] BLUE MR PB ONLY BL[employer] [place] [place] BLUE HB ONLY MEDICARE PART B HB ONLY MEDICARE PART A HB ONLY [employer] [place] BLUE HB ONLY MEDICARE PART B HB ONLY Care Teams Pest Controller Relationship Specialty Start Date End Date Lizette Shearer MD [address] [place] [address] PCP - General Family Practice 12/14/12
[2024-05-08 22:51] LABS: Basophils Percent Auto 0.6 % (0.0-3.0); Eosinophils Percent Auto 0.4 % (0.0-7.0); Hematocrit 43.2 % (33.0-51.0); Hemoglobin* 13.6 gm/dL (12.0-16.0); Immature Granulocytes Pct Auto 0.8 %; Lymphocytes Percent Auto 8.6 % (20-44); Mean Corpuscular HGB Conc 32 gm/dL (32-36); Mean Corpuscular Hemoglobin 27 pg (26-34); Mean Corpuscular Volume 87 fL (80-100); Monocytes Percent Auto 6.2 % (0.0-11.0); Neutrophils Percent Auto 83.4 % (42.0-72.0); Platelet Count* 192 K/uL (140-440); RDW Coefficient of Variation % 13.3 % (11.5-15.5); Red Blood Count 4.96 m/uL (4.00-5.20); White Blood Count* 12.88 K/uL (4.50-11.00)
[2024-05-08 22:55] LABS: Slide Review Reflex No
[2024-05-08 23:04] LABS: Chloride* 101 mmol/L (96-114)
[2024-05-08 23:05] LABS: Potassium* 4.2 mmol/L (3.6-5.1); Sodium* 134 mmol/L (135-149)
[2024-05-08 23:07] LABS: Estimated Glomerular Filt Rate 59 ml/min
[2024-05-08 23:08] LABS: Anion Gap 9 mEq/L (7-15); Blood Urea Nitrogen* 21 mg/dL (7-30); Carbon Dioxide* 24 mmol/L (20-32)
[2024-05-08 23:09] LABS: Calcium* 9.2 mg/dL (8.4-10.6); Glucose* 162 mg/dL (60-115)
[2024-05-08 23:09] LABS: PCR FLU A Negative PCR FLU A (Negative); PCR FLU B Negative PCR FLU B (Negative); PCR RSV Negative PCR RSV (Negative); SARS PCR* Negative SARS-CoV-2 (Negative)
[2024-05-08 23:37] LABS: C Reactive Protein* < 0.5 mg/dL (0.5-1.0)
[2024-05-08 23:38] LABS: Erythrocyte SedimentationRate* 6 mm/hr (2-20)
== END 2024-05-09 00:15 | disposition home or self-care (01) ==
PROVIDERS: Emergency Provider Family Medicine; PCP Family Medicine
DX: M25.562 Pain in left knee (principal); M25.561 Pain in right knee; M25.542 Pain in joints of left hand; M25.541 Pain in joints of right hand
CPT/HCPCS: 36415; 80048; 85025; 85651; 86140; 87631; 99283; 99284

== ENCOUNTER 2024-08-02 12:47 | Outpatient (CLI) | payer MEDICARE, BC, SELFPAY ==
--- NOTE | 2024-08-02 14:05 | P.ANES_ITS ---
Anesthesia Charges Start Date/Time Anesthesia Start Date: 08/02/24 Anesthesia Start Time: 13:38 Stop Date/Time Anesthesia Stop Date: 08/02/24 Anesthesia Stop Time: 14:03 Summary Extremes of Age - Over 70 or under 1: SHAREPOINT ANALYST Coding CPT Codes CPT Codes: NEETA LWR INTST SCR COLSC - 97813 ([id number]) P1 - NORMAL HEALTHY PATIENT, QK - CIRCUIT WALKER 2-4 CNCRNT ANEHéctor PROC, QX - SHAREPOINT ANALYST SVC W/ MD MED DIRECTION Additional Codes: Summary - Extremes of Age - Over 70 or under 1: SHAREPOINT ANALYST ([id number])
--- NOTE | 2024-08-02 14:05 | W.ANESCHARGE ---
Anesthesia Charges Start Date/Time Anesthesia Start Date: 08/02/24 Anesthesia Start Time: 13:38 Stop Date/Time Anesthesia Stop Date: 08/02/24 Anesthesia Stop Time: 14:03 Summary Extremes of Age - Over 70 or under 1: ELEVATOR EXAMINER AND ADJUSTER Coding CPT Codes CPT Codes: NEETA LWR INTST SCR COLSC - 59160 ([id number]) P1 - NORMAL HEALTHY PATIENT, QK - SEAMER PANTY HOSE 2-4 CNCRNT ANEHéctor PROC, QX - ELEVATOR EXAMINER AND ADJUSTER SVC W/ MD MED DIRECTION Additional Codes: Summary - Extremes of Age - Over 70 or under 1: ELEVATOR EXAMINER AND ADJUSTER ([id number])
--- NOTE | 2024-08-02 14:12 | P.ANES_ITS ---
Anesthesia Charges Start Date/Time Anesthesia Start Date: 08/02/24 Anesthesia Start Time: 13:38 Stop Date/Time Anesthesia Stop Date: 08/02/24 Anesthesia Stop Time: 14:03 Summary Extremes of Age - Over 70 or under 1: MDA Coding CPT Codes CPT Codes: NEETA LWR INTST SCR COLSC - 58823 ([id number]) P1 - NORMAL HEALTHY PATIENT, QK - TRUST ADMINISTRATIVE ASSISTANT 2-4 CNCRNT ANES PROC, QX - LOGGING ENGINEER SVC W/ MD MED DIRECTION Additional Codes: Summary - Extremes of Age - Over 70 or under 1: MDA ([id number])
--- NOTE | 2024-08-02 14:12 | W.ANESCHARGE ---
Anesthesia Charges Start Date/Time Anesthesia Start Date: 08/02/24 Anesthesia Start Time: 13:38 Stop Date/Time Anesthesia Stop Date: 08/02/24 Anesthesia Stop Time: 14:03 Summary Extremes of Age - Over 70 or under 1: MDA Coding CPT Codes CPT Codes: NEETA LWR INTST SCR COLSC - 00383 ([id number]) P1 - NORMAL HEALTHY PATIENT, QK - SOLE SPLITTER 2-4 CNCRNT ANES PROC, QX - DAIRY HUSBANDMAN SVC W/ MD MED DIRECTION Additional Codes: Summary - Extremes of Age - Over 70 or under 1: MDA ([id number])
== END 2024-08-02 12:48 | disposition home or self-care (01) ==
LOC: OP CLINIC 12:48
PROVIDERS: PCP Family Medicine; Visit Provider Internal Medicine Gastroenterology
DX: K92.1 Melena (principal); Z80.0 Family history of malignant neoplasm of digestive organs; K57.30 Diverticulosis of large intestine without perforation or abscess without bleeding; K64.8 Other hemorrhoids
CPT/HCPCS: 00812; 45378; 99100; J2704